=== PATIENT | male | born 1935 | race Caucasian/White ===

== ENCOUNTER 2016-09-02 16:13 | Emergency (ER) | payer MEDICARE, OTHER ==
[2016-09-02 16:39] VITALS: TEMP 98.1
[2016-09-02 16:55] LABS: BASOPHILS % (AUTO) 1 % (0-3); EOSINOPHILS % (AUTO) 3 % (0-9); HEMATOCRIT 41 % (39-53); MEAN CORPUSCULAR HGB CONC 33.5 gm/dl (32.0-36.0); MEAN CORPUSCULAR VOLUME 91 fL (80-100); NEUTROPHILS % (AUTO) 78.9 % (37-80)
[2016-09-02 17:06] LABS: POTASSIUM 4.5 mMol/L (3.5-5.1)
[2016-09-02 17:13] VITALS: O2SAT 100
[2016-09-02 17:49] VITALS: BP 161/94; PULSE 112; RESP 17
== END 2016-09-02 18:10 | disposition home or self-care (01) | DRG 192 ==
LOC: ED 16:13
DX: J44.1 Chronic obstructive pulmonary disease with (acute) exacerbation (principal)
CPT/HCPCS: 36415; 71020; 80048; 83880; 85025; 99283; 99284

== ENCOUNTER 2017-08-26 20:04 | Emergency (ER) | payer MEDICARE, OTHER ==
[2017-08-26 20:05] VITALS: O2SAT 98
[2017-08-26 20:17] VITALS: BP 167/105; PULSE 91; RESP 24; TEMP 97.5
== END 2017-08-26 21:39 | disposition home or self-care (01) | DRG 206 ==
LOC: ED 20:04
DX: T17.898A Other foreign object in other parts of respiratory tract causing other injury, initial encounter (principal); I48.91 Unspecified atrial fibrillation; Z79.01 Long term (current) use of anticoagulants
CPT/HCPCS: 70360; 99282

== ENCOUNTER 2017-10-06 19:02 | Emergency (ER) | payer MEDICARE, OTHER ==
[2017-10-06 19:34] VITALS: RESP 20; TEMP 98.4
[2017-10-06] MEDS ORDERED: LORAZEPAM 0.5 MG TAB PO ONE (20:28)
[2017-10-06] MEDS ORDERED: LORAZEPAM 0.5 MG TAB ONE (20:33)
[2017-10-06] MEDS ORDERED: MAGNESIUM CITRATE SOL PO PRN (20:40)
[2017-10-06 20:53] LABS: CALCIUM 8.8 mg/dl (8.5-10.1); CARBON DIOXIDE 28.3 mEq/L (21-32); CREATININE 1.01 mg/dl (0.80-1.30); POTASSIUM 4.7 mMol/L (3.5-5.1); TROP I 0.018 ng/ml (0.000-0.056)
[2017-10-06] MEDS ORDERED: MAGNESIUM CITRATE SOL ONE (21:18)
[2017-10-06 21:40] VITALS: O2SAT 98
[2017-10-06 21:41] VITALS: BP 155/105; PULSE 83
== END 2017-10-06 21:35 | disposition home or self-care (01) | DRG 880 ==
LOC: ED 19:02
DX: F41.9 Anxiety disorder, unspecified (principal); R00.0 Tachycardia, unspecified; K59.00 Constipation, unspecified
CPT/HCPCS: 36415; 80048; 84484; 99283; A9270-GY

== ENCOUNTER 2018-09-28 09:19 | Day surgery (SDC) | payer MEDICARE, OTHER ==
[~2018-09-28 09:19] MED LIST: BUPIVACAINE/EPI 0.5% 10 ML SOL INFIL ONE; CEFAZOLIN SODIUM 1 GM PDS ONE; DEXAMETHASONE 20 MG/5 ML (4 MG/ML SOL) ONE; FENTANYL 100MCG/2ML SOL ONE; LIDOCAINE HCL 1% MPF 30 SOL ONE; METOCLOPRAMIDE HYDROCHLORIDE 5 MG/ML SOL ONE; MIDAZOLAM 2 MG/2 ML SOL ONE; ONDANSETRON HCL 4 MG/2 ML SOL ONE; PROPOFOL 500 MG/50 ML EMU IV ONE
[2018-09-28 09:23] VITALS: RESP 16
[2018-09-28 10:59] VITALS: TEMP 97.7
[2018-09-28 11:47] VITALS: BP 106/65; PULSE 74; O2SAT 98
== END 2018-09-28 11:45 | disposition home or self-care (01) | DRG 395 ==
LOC: SURG 09:19
PROVIDERS: ATTEND Surgery
DX: K40.90 Unilateral inguinal hernia, without obstruction or gangrene, not specified as recurrent (principal)
CPT/HCPCS: J0690; J1100; J2250; J2405; J2765; J3010; A6402; C1781; J2001; J2704